=== PATIENT | female | born 1965 | race Caucasian/White ===

== ENCOUNTER → 2018-06-29 | Outpatient (CLI) | payer BC ==
[~2018-06-29] VITALS: Ht 167.6 cm; Wt 126.6 kg
[~2018-06-29] MED LIST: FLUOXETINE HCL40 MG PO; LIPITOR10 MG PO; LOSARTAN POTASS50 MG PO; NEXIUM40 MG PO; SYNTHROID150 MCG PO; XANAX 0.5 MG0.5 MG PO
--- NOTE | ~2018-06-29 | P ---
[facility] [place] [address] [place] [address] PROCEDURE REPORT Name: CLARICE LLANOS Room #: REG [facility].#: [id number] Admission: 06/29/18 Attend Phys: Isaac Manjarrez MD Discharge: Date of : 67 Report #: [id number] THIS REPORT FOR: //name// CC: Isaac Manjarrez DATE OF SERVICE: 06/29/2018 BRIEF HISTORY: The patient is a 53-year-old woman with history of colon polyp removed 6 years ago. She presents for a surveillance colonoscopy. PREOPERATIVE DIAGNOSIS: Surveillance colonoscopy. POSTOPERATIVE DIAGNOSIS: Colon polyps. MEDICATIONS: Deep sedation with propofol per anesthesia. SPECIMENS: 1. Polyp from cecum. 2. Polyp from 70 cm. ESTIMATED BLOOD LOSS: 3 mL. PROCEDURE: Colonoscopy to cecum and terminal ileum with snare polypectomy and biopsy. FINDINGS: Prior to propofol sedation, the procedure of colonoscopy discussed with the patient as well as potential risks, benefits, and complications. She indicates she understands and desires to proceed. With the patient in left lateral decubitus position, digital examination was completed, which revealed no abnormalities. Subsequently, the Olympus video colonoscope was introduced into the rectum, advanced under direct vision to the cecum. This was done with minimal difficulty. The cecum was identified by the ileocecal valve and the appendiceal orifice. I was able to advance the scope into the distal ileum, which was noted to be unremarkable. At that point, the scope was slowly withdrawn and careful circumferential views obtained including retroflexing the scope in the ascending colon. Upon slow withdrawal of the scope, the prep was good. The mucosa was within normal limits, normal vascular pattern, and normal light reflex. As we withdrew the scope, a diminutive polyp was seen in the cecum, removed by biopsy. Scope was further withdrawn and no additional abnormalities were noted until the descending colon was reached and at 70 cm, a fairly flat 5-mm polyp was seen and removed by cold snare polypectomy and recovered. Scope was further withdrawn and no additional neoplastic lesions were seen. In the sigmoid colon, there was mild diverticular [address] [address] PROCEDURE REPORT Name: CLARICE LLANOS Room #: REG [facility].#: [id number] Admission: 06/29/18 Attend Phys: Isaac Manjarrez MD Discharge: Date of : 67 Report #: [id number] disease without endoscopic evidence of diverticulitis. Scope was withdrawn in the rectum. Upon retroflexion, small internal hemorrhoids were seen. Scope was withdrawn. The patient tolerated the procedure well. CONDITION OF THE PATIENT UPON DISCHARGE: Following procedure, the patient drowsy, arousable and conversant and will be discharged to home when fully ambulatory. INSTRUCTIONS TO THE PATIENT AND FAMILY AT THE TIME OF DISCHARGE: We will follow up on the path of the polyps. If one or both are adenomas, she should return in 5 years; if neither is an adenoma, then 10 years would be indicated. The patient also reported some problems with urgency and some fecal incontinence. Anal sphincter tone was unremarkable in the sedated patient. No evidence of inflammatory disease was seen. We will have her follow a high fiber diet and start dicyclomine 10-20 mg a.c. and at bedtime as needed. If symptoms do not improve, she should return to the office for followup. Last colonoscopy was 6 years ago. Withdrawal time from cecum was 14 minutes 18 seconds. By: [id number] Isaac Manjarrez MD /nt
--- NOTE | ~2018-06-29 | PATH ---
[facility] [place] [address] PATHOLOGY RPT PROCEDURE Name: BHARTI DAVIS Room #: REG [facility].#: [id number] Admission: 06/29/18 Date of : 67 Discharge: Report #: [id number] Path Case #: [id number] [facility] Accession Number: [id number] . 01 Material submitted: . PART A: POLYP AT CECUM PART B: POLYP AT 70 CM . 01 Clinical history: . History of polyps Colon polyps, diverticulosis, hemorrhoids . 02 Diagnosis: A. Polyp, at cecum, endoscopic biopsy: - Tubular adenoma. - Negative for high grade dysplasia. . B. Polyp, at 70 cm, endoscopic biopsy: - Tubular adenoma. - Negative for high grade dysplasia. (IUV/db; 07/02/18) LBQ/07/02/2018 . 02 Electronically signed: . Myranda Jenkins MD, Pathologist NPI- [id number] . 01 Gross description: . A. The specimen is received in formalin, labeled "Bharti Davis, polyp at cecum" and consists of a fragment of soft raman tissue measuring 0.3 x 0.3 x 0.1 cm which is entirely submitted in A1. . B. The specimen is received in formalin, labeled "Bharti Davis, polyp at 70 cm" and consists of a fragment of soft raman-brown tissue measuring 0.8 x 0.3 x 0.2 cm which is entirely submitted in B1. (SDY; 06/29/2018) SYU/SYU . 02 Pathologist provided ICD-10: D12.0, D12.6 . 02 CPT . 480905, 881797 Specimen Comment: A courtesy copy of this report has been sent to Specimen Comment: [phone], . Specimen Comment: Report sent to and Performed at: 01 [place] [address] PATHOLOGY RPT PROCEDURE Name: BHARTI DAVIS Room #: REG [facility].#: [id number] Admission: 06/29/18 Date of : 67 Discharge: Report #: [id number] Path Case #: [id number] [facility] [place], [place], [place] [id number] MD Efrain Liu MD Phone: [phone] Performed at: [address] [id number] MD Myranda Jenkins MD Phone: [phone]
== END | disposition home or self-care (01) ==
LOC: GI 09:09
DX: Z12.11 Encounter for screening for malignant neoplasm of colon (principal); Z86.010 Personal history of colon polyps; D12.0 Benign neoplasm of cecum; D12.4 Benign neoplasm of descending colon; K64.8 Other hemorrhoids; K21.9 Gastro-esophageal reflux disease without esophagitis; I10 Essential (primary) hypertension; E03.9 Hypothyroidism, unspecified; E78.5 Hyperlipidemia, unspecified; F32.9 Major depressive disorder, single episode, unspecified; F41.9 Anxiety disorder, unspecified; Z87.442 Personal history of urinary calculi; Z90.49 Acquired absence of other specified parts of digestive tract; Z96.653 Presence of artificial knee joint, bilateral; Z90.710 Acquired absence of both cervix and uterus; Z98.890 Other specified postprocedural states; Z88.8 Allergy status to other drugs, medicaments and biological substances; Z79.899 Other long term (current) drug therapy
CPT/HCPCS: 62110; 62900